=== PATIENT | male | born 1980 | race Caucasian/White ===

== ENCOUNTER 2023-11-14 13:58 | Emergency (ER) | payer OTHER, SELFPAY ==
--- NOTE | ~2023-11-14 | CT_ITS ---
EXAMINATION: CT ABDOMEN AND PELVIS WITH CONTRAST CLINICAL INFORMATION: 43-year-old male with epigastric pain, nausea and vomiting COMPARISON: None available. TECHNIQUE: Multidetector volumetric images were obtained from the superior aspect of the liver through the pubic symphysis following administration 80 mL of Omnipaque 350 intravenous contrast. Sagittal and coronal reformatted images were obtained on the technologist's workstation. Oral contrast: No This CT examination was performed using dose optimization techniques as appropriate, variously including the following: *Automated exposure control *Adjustment of mA and/or kV according to patient size (this includes techniques or standardized protocols for targeted exams where dose is matched to indication/reason for exam; i.e. extremities or head) *Use of iterative reconstruction technique DLP: 552 mGy-cm FINDINGS: LUNG BASES: The visualized lung bases are unremarkable. LIVER, GALLBLADDER, AND BILIARY TREE: The liver is normal in size, shape, and attenuation. No focal hepatic lesion or biliary ductal dilatation is present. The gallbladder is unremarkable with no evidence of radiopaque gallstones, gallbladder wall thickening, or obvious pericholecystic inflammatory changes. PANCREAS: Unremarkable. SPLEEN: Unremarkable. ADRENAL GLANDS: Unremarkable. KIDNEYS AND URETERS: There is punctate nonobstructing stone in the collecting system of left kidney BLADDER: Unremarkable. GASTROINTESTINAL TRACT: There is diffuse thickening of ascending colon loop without evidence of obstruction or perforation. Appendix is unremarkable. There is no inflammatory changes surrounding thick wall of the colon. There is a of colon is decompressed and unremarkable ABDOMINAL WALL: No significant hernia is appreciated. LYMPH NODES: There is small reactive appearing lymph nodes seen in the right side of mesentery VASCULAR: Unremarkable. PELVIC VISCERA: Unremarkable. OSSEOUS STRUCTURES: Unremarkable. CT/CT abdomen pelvis w IV con IMPRESSION: 1. Diffuse thickening of ascending colon loop with reactive appearing lymph nodes in the right side of the mesentery. Most likely colitis 2. Punctate nonobstructing stone in left kidney. Fleischner guidelines were followed.
--- NOTE | 2023-11-14 14:04 | ED.NAVMDI ---
HPI - Nausea/Vomiting/Diarrhea General Chief complaint: Abdominal Pain Stated complaint: VOMITING Time Seen by Provider: 11/14/23 14:25 Source: patient, EMS, RN notes reviewed and old records reviewed Mode of arrival: EMS History of Present Illness ED Provider: Jeannie Kaye PA-C HPI Narrative: 45-year-old male with past medical history of hypertension, psychosis, presenting to ED via EMS from [facility] for epigastric abdominal pain, nausea, and vomiting x 1 hour. Patient denies EtOH or drug use recently. Reports some diarrhea. Denies fever, chills, CP/SOB, urinary symptoms Related Data Previous Rx's ?Medication ?Instructions ?Recorded ondansetron HCl 4 mg tablet 4 mg PO Q8H PRN nausea and 11/14/23 vomiting #14 tabs Allergies Allergy/AdvReac Type Severity Reaction Status Date / Time amitriptyline Allergy Palpitation Verified 11/14/23 14:17 s venlafaxine [From Effexor] Allergy Palpitation Verified 11/14/23 14:17 s Review of Systems Review of Systems: Constitutional: No Fever, No Chills ENT/Mouth: No Ear Pain, No Nasal Congestion, No sore throat, No Rhinorrhea, No Swallowing Difficulty Cardiovascular: No Chest Pain, No SOB Respiratory: No Cough Gastrointestinal: + Nausea, + Vomiting, + Diarrhea, No Constipation, + Abdominal pain Genitourinary: No Dysuria, No Urinary Frequency, No Hematuria, No Urinary Incontinence/retention, No Flank Pain Musculoskeletal: No joint pain, No Myalgias, No Joint Swelling Skin: No Skin Lesions, No rash Neuro: No Weakness, No Numbness, No Paresthesia Yes all other systems are reviewed and are negative Constitutional: Constitutional: Reports as per [facility] Past Medical History Attestation statement: The following information was validated with the patient. Source: old records reviewed Social History Social History Alcohol intake: former Use of substances other than those prescribed or required for medical reasons: No Advance Directives: No Physical Exam Vital Signs: Vital Signs: Last Vital Signs Temp 98.8 F 11/14/23 18:55 Pulse 80 11/14/23 21:11 Resp 17 11/14/23 21:11 BP 155/101 H 11/14/23 21:11 Pulse Ox 99 11/14/23 21:11 O2 Del Method Room Air 11/14/23 21:11 BMI result Body Mass Index 33.0 Const: General: cooperative, healthy appearing and no acute distress Orientation/consciousness: patient oriented x3 Limitations: no limitations HEENT: Head: Yes normal to inspection and Yes atraumatic Ears: hearing grossly normal bilaterally General nose exam: Normal external nose present Face and sinus: Yes normal facial exam Eyes: General: appearance normal, both eyes and all related structures EOM: EOMs intact bilaterally Neck: Neck: Yes normal visual inspection and Yes no meningeal signs Resp: Effort & Inspection: normal respiratory effort and no respiratory distress Auscultation: clear to auscultation bilaterally Cardio: Rate: regular rate Heart sounds: S1 normal heart sound present and S2 normal heart sound present GI: Inspection: Yes normal to inspection Palpation (GI): Soft to palpation, Tenderness to palpation present (GI) in the epigastrum; with no rebound tenderness, no guarding and not rigid : General: Yes no CVA tenderness Back/Spine/Pelvis: Back: no CVA tenderness Skin: Rashes: no rashes Wounds: no wounds Neuro: General: patient oriented x3, tone normal and no meningeal signs Cranial nerves: Yes CN's II-XII intact bilaterally Gait exam (Neuro): Normal gait present Extrem: General: Yes normal to inspection Course Course Course Narrative: -WBC count 11.9. ALT mildly elevated. Labs otherwise reassuring. Ethanol negative. Tox screen positive for marijuana -UA with ketones, not infected -1630--ED care transferred to [place] pending UA, tox screen, and CT AP. Dispo per results Reevaluation(s) Reevaluation #1: UA without infection. Patient's CBC slight leukocytosis 11.9 no left shift this is likely reactive secondary to nausea and vomiting. Chemistry no acute findings needing intervention. Lipase 46. Urine toxicology positive for marijuana. Ethanol level negative. Initially when I took over for this patient he was having significant nausea and vomiting, IV Haldol was given as I do suspect this is cyclic vomiting. Patient woke up in reports he is feeling much better in terms of nausea and vomiting slight abdominal discomfort. For this reason abdominal CT was done, diffuse thickening of the ascending colon loop with reactive appearing lymph nodes in the right side of mesentery. Most likely colitis. Punctate nonobstructing stone in the left kidney unlikely that this is causing patient's pain. Plan at this time is discharge patient home with meds for nausea. Colitis is likely viral as patients have been present for only 24 hours, no fever, tachycardia. I do not suspect bacterial colitis. Patient tolerating p.o.. Well-appearing. Educated patient on diagnosis and treatment plan, answered all question, patient verbalizes understanding. At this time patient will be discharged home, advised to return with new or worsening symptoms. Educated on worrisome signs and symptoms and when to return. At this time I feel comfortable discharge home. Time: 21:55 Medications Administered Discontinued Medications Generic Name Dose Route Start Last Admin Trade Name Freq PRN Reason Stop Dose Admin Diphenhydramine HCl 50 mg 11/14/23 14:37 11/14/23 14:48 Diphenhydramine Hcl 50 Mg/Ml Vial IVPUSH 11/14/23 14:38 50 mg ONCE ONE Administration Haloperidol Lactate 2 mg 11/14/23 18:13 11/14/23 18:18 Haloperidol Lactate 5 Mg/Ml Vial IVPUSH 11/14/23 18:14 2 mg STAT STA Administration Hydromorphone HCl 2 mg 11/14/23 21:43 11/14/23 21:48 Hydromorphone Hcl 2 Mg Tablet PO 11/14/23 21:44 2 mg ONCE ONE Administration Sodium Chloride 1,000 mls @ 999 mls/hr 11/14/23 14:30 11/14/23 16:26 Ns IV 11/14/23 15:30 Infused .Q1H1M ANITA Infusion Iohexol 100 ml 11/14/23 15:18 11/14/23 15:18 Iohexol 350 Mg/Ml 100 Ml Infus..Btl IV 11/14/23 15:19 85 ml ONCE ONE Administration Ketorolac Tromethamine 15 mg 11/14/23 14:17 11/14/23 14:25 Ketorolac Tromethamine 15 Mg/Ml Vial IVPUSH 11/14/23 14:18 15 mg ONCE ONE Administration Ondansetron HCl 4 mg 11/14/23 14:17 11/14/23 14:25 Ondansetron Hcl 4 Mg/2 Ml Vial IVPUSH 11/14/23 14:18 4 mg ONCE ONE Administration Medical Decision Making Medical Decision Making MDM Narrative: 45-year-old male with past medical history of hypertension, psychosis, presenting to ED via EMS from [facility] for epigastric abdominal pain, nausea, and vomiting x 1 hour. On exam vital signs stable, NAD, nontoxic appearing, abdomen soft epigastric tenderness, no rebound or guarding. Concern for cyclical vomiting vs pancreatitis vs cholecystitis/cholelithiasis vs substance abuse vs EtOH abuse or ?withdrawal. No tongue fasciculations. Rule out metabolic abnormalities. Low suspicion for severe sepsis Plan: EKG, labs, UA, tox screen, CT AP, IVF, antiemetic, re-evaluate Please refer to course for remaining clinical decision making, interpretation of labs/imaging results, and discussions with consultants and/or family members. Differential Diagnosis Differential Diagnoses: The differential diagnosis associated with the presentation includes As above Admission/Observation Consideration of admission/observation: Escalation of care including admission/observation considered Lab Data [facility] Lab Attestation statement: I reviewed the patient's lab results. 11/14/23 14:22 11/14/23 14:22 Labs: Lab Results 11/14/23 11/14/23 Range/Units 14:22 15:42 WBC 11.9 H (4.8-10.8) X10*3/uL RBC 5.15 (4.60-5.80) X10*6/uL Hgb 16.3 (14.0-18.0) g/dl Hct 46.1 (42.0-52.0) % MCV 89.5 (80.0-98.0) fL MCH 31.7 (27.0-33.0) pg MCHC 35.4 (31.0-36.0) g/dl RDW 12.6 (11.0-16.0) % Plt Count 303 (160-400) X10*3/uL MPV 9.0 L (9.4-12.4) fL Immature Gran % (Auto) 0.6 H (0.0-0.4) % Neut % (Auto) 66.5 (45-73) % Lymph % (Auto) 22.0 (20-40) % [place] % (Auto) 8.7 (2-11) % Eos % (Auto) 1.8 (0-4) % Baso % (Auto) 0.4 (0-2) % Lymph # (Auto) 2.6 (1.2-4.9) X10*3/uL [place] # (Auto) 1.0 (0.1-1.2) X10*3/uL Eos # (Auto) 0.2 (0.0-0.4) X10*3/uL Baso # (Auto) 0.1 (0.0-0.2) X10*3/uL Abs Immat Gran (auto) 0.07 H (0.00-0.03) X10*3/uL Absolute Neuts (auto) 7.9 (2.0-8.3) x10*3/uL Absolute Nucleated RBC 0.000 (0.0-0.012) X10*3/uL Nucleated RBC % (auto) 0.0 (0.0-0.2) /100WBC Sodium 138 (135-145) mmol/L Potassium 4.2 (3.3-5.1) mmol/L Chloride 107 (96-108) mmol/L Carbon Dioxide 21 L (22-29) mmol/L Anion Gap 14 (12-20) BUN 14 (9-16) mg/dL Creatinine 0.87 (0.5-1.4) mg/dL Estim Creat Clear Calc 132.4 Estimated GFR > 60 Random Glucose 130 H (60-115) mg/dL Calcium 9.2 (8.4-10.2) mg/dL Magnesium 2.2 (1.6-2.6) mg/dL Total Bilirubin 0.6 (0.0-1.0) mg/dL Direct Bilirubin 0.1 (0.0-0.5) mg/dL AST 37 (5-37) U/L ALT 55 H (0-40) U/L Alkaline Phosphatase 67 (39-117) U/L Total Protein 7.7 (6.5-8.0) g/dL Albumin 4.7 (3.5-5.0) g/dL Lipase 46 (8-78) U/L Urine Color Yellow Urine Appearance Turbid Urine pH 8.5 (5.0-9.0) Ur Specific [place] 1.025 (1.005-1.025) Urine Protein Negative (Neg-Trace) mg/dL Urine Glucose (UA) Negative (Negative) mg/dL Urine Ketones 15 (Negative) mg/dL Urine Blood Negative (Negative) Urine Nitrite Negative (Negative) Ur Leukocyte Esterase Negative (Negative) Urine Opiates Screen Not Detected (Not Detect) Ur Buprenorphine Scrn Not Detected (Not Detect) ng/mL Ur Oxycodone Screen Not Detected (Not Detect) ng/mL Urine Methadone Screen Not Detected (Not Detect) ng/mL Urine Fentanyl Screen Not Detected (Not Detect) Ur Barbiturates Screen Not Detected (Not Detect) Ur Phencyclidine Scrn Not Detected (Not Detect) Ur Amphetamines Screen Not Detected (Not Detect) U Benzodiazepines Scrn Not Detected (Not Detect) Urine Cocaine Screen Not Detected (Not Detect) U Marijuana (THC) Screen POSITIVE H (Not Detect) Ethyl Alcohol < 10 mg/dL Independent Interpretation I performed an independent interpretation of an: EKG and CT Scan Radiology Impression Discussion of test interpretation with radiology: I have reviewed the radiologist's reading. Independent Historian Clinical information obtained from an independent historian. History obtained from or confirmed by: EMS External Record Review External record reviewed: Inpatient record, Office record, Outpatient record, Prior outpatient labs, Prior outpatient radiology, Primary care record and Outside ED record Tests considered The following testing was considered but not selected: As above Prescription Management I considered prescription management with: Pain Medication Chronic Conditions Patient?s care impacted by: Other Social Determinants Patient?s care significantly limited by Social Determinants of Health including: Inadequate housing, Low income, Alcoholism and drug addiction in family and Problems related to primary support group Critical Care Time Critical Care Time Critical Care Time: Yes Total Critical Care Time: 35 Attestation: I attest to this time spent taking care of the patient, obtaining history, physical, reviewing labs, imaging, speaking to my attending, specialist or hospitalist. Discharge Plan Discharge Clinical Impression: Abdominal pain, Nausea & vomiting, Colitis, Kidney calculi Patient Disposition: Home, Self-Care Instructions: Acute Nausea and Vomiting (ED), Abdominal Pain (ED) Additional Instructions: Take your medications as prescribed. If you were prescribed antibiotics today, it is important that you take your medication to their entirety, do not skip any doses, do not finish them early. Follow-up with your primary care provider this week. Return to the emergency department with new or worsening symptoms. Such as fevers, chills, chest pain, shortness of breath, nausea, vomiting, dizziness, headache, vision changes, lethargy In case of emergency call 911 CT/CT abdomen pelvis w IV con IMPRESSION: 1. Diffuse thickening of ascending colon loop with reactive appearing lymph nodes in the right side of the mesentery. Most likely colitis 2. Punctate nonobstructing stone in left kidney. Fleischner guidelines were followed. Prescriptions: New ondansetron HCl 4 mg tablet 4 mg PO Q8H PRN (Reason: nausea and vomiting) Qty: 14 0RF Referrals: [facility] [Provider Group] - 2 days Physician,Unknown J [Primary Care Provider] - 2 days Stand Alone Forms: Work/School Release Print Language: Portuguese
[2023-11-14 14:13] VITALS: BP 153/85; BP 156/92; PULSE 64; PULSE 70; RESP 12; TEMP 36.6; O2SAT 98; BMI 33.0
--- NOTE | 2023-11-14 14:17 | ECG_ITS ---
Test Reason : EPIGASTRIC PAIN Blood Pressure : / mmHG Vent. Rate : 065 BPM Atrial Rate : 065 BPM P-R Int : 156 ms QRS Dur : 098 ms QT Int : 434 ms P-R-T Axes : 054 009 060 degrees QTc Int : 451 ms Normal sinus rhythm Possible Anterior infarct , age undetermined Abnormal ECG No previous ECGs available Referred By: Jeannie Kaye Electronically Signed By:NICO OCONNOR
[2023-11-14] MEDS: ondansetron HCL 4 MG/2 ML VIAL IVPUSH (14:25)
[2023-11-14] MEDS: 0.9 % Sodium Chloride 1,000 ML 999 ML IV (14:25)
[2023-11-14] MEDS: Ketorolac Tromethamine 15 MG/ML VIAL IVPUSH (14:25)
[2023-11-14 14:26] LABS: MANUAL DIFF FLAG NO
[2023-11-14 14:30] LABS: Basophils Absolute Auto 0.1 X10*3/uL (0.0-0.2); Basophils Percent Auto 0.4 % (0-2); Eosinophils Absolute Auto 0.2 X10*3/uL (0.0-0.4); Eosinophils Percent Auto 1.8 % (0-4); Hematocrit 46.1 % (42.0-52.0); Hemoglobin 16.3 g/dl (14.0-18.0); Imm Gran Abs Auto 0.07 X10*3/uL (0.00-0.03); Imm Gran Pct Auto 0.6 % (0.0-0.4); Lymphocytes Absolute Auto 2.6 X10*3/uL (1.2-4.9); Mean Corpuscular HGB Conc 35.4 g/dl (31.0-36.0); Mean Corpuscular Hemoglobin 31.7 pg (27.0-33.0); Mean Corpuscular Volume 89.5 fL (80.0-98.0); Monocytes Percent Auto 8.7 % (2-11); Neutrophils Absolute Auto 7.9 x10*3/uL (2.0-8.3); Neutrophils Percent Auto 66.5 % (45-73); Platelet Count 303 X10*3/uL (160-400); Red Blood Count 5.15 X10*6/uL (4.60-5.80); Red Cell Distribution Width 12.6 % (11.0-16.0); White Blood Count 11.9 X10*3/uL (4.8-10.8)
[2023-11-14] MEDS: diphenhydrAMINE HCL 50 MG/ML VIAL IVPUSH (14:48)
[2023-11-14 14:50] LABS: Alanine Aminotransferase 55 U/L (0-40); Albumin Level 4.7 g/dL (3.5-5.0); Alkaline Phosphatase 67 U/L (39-117); Anion Gap 14 (12-20); Aspartate Amino Transferase 37 U/L (5-37); Bilirubin Direct 0.1 mg/dL (0.0-0.5); Bilirubin Total 0.6 mg/dL (0.0-1.0); Blood Urea Nitrogen 14 mg/dL (9-16); Calcium 9.2 mg/dL (8.4-10.2); Carbon Dioxide 21 mmol/L (22-29); Chloride 107 mmol/L (96-108); Creatinine Clr Calc Pharmacy 132.4; Estimated Glomerular Filt Rate > 60; Ethanol < 10 mg/dL; Glucose Random 130 mg/dL (60-115); Lipase 46 U/L (8-78); Magnesium 2.2 mg/dL (1.6-2.6); Potassium 4.2 mmol/L (3.3-5.1); Sodium 138 mmol/L (135-145); Total Protein 7.7 g/dL (6.5-8.0)
[2023-11-14] MEDS: iohexoL 350 MG/ML 100 ML INFUS..BTL IV (15:18)
[2023-11-14 15:47] VITALS: BP 140/88; PULSE 68; RESP 17; TEMP 36.7; O2SAT 97
[2023-11-14 15:54] LABS: Appearance Urine Turbid; Color Urine Yellow; Glucose Urine UA Negative (Negative); Leukocyte Esterase Urine Negative (Negative); Nitrite Urine Negative (Negative); PH 8.5 (5.0-9.0); Specific Gravity - Urine 1.025 (1.005-1.025); Urine Blood Negative (Negative); Urine Ketones 15 mg/dL (Negative); Urine Protein Negative (Neg-Trace)
[2023-11-14 16:03] LABS: Amphetamine Screen Urine Not Detected (Not Detect); Barbiturates, Urine Not Detected (Not Detect); Benzodiazepines Screen Urine Not Detected (Not Detect); Buprenorphine Scr Not Detected (Not Detect); Cannabinoid Screen Urine POSITIVE (Not Detect); Cocaine Screen Urine Not Detected (Not Detect); Fentanyl, urine Not Detected (Not Detect); Methadone Screen, Urine Not Detected (Not Detect); Opiate Screen Urine Not Detected (Not Detect); Oxycodone Screen Urine Not Detected (Not Detect); Phencyclidine Screen Urine Not Detected (Not Detect)
--- NOTE | 2023-11-14 18:15 | PC.NURSE ---
pt reports burning epigastric pain, nasuea and vomiting. PA notified. haldol ordered.
[2023-11-14] MEDS: Haloperidol Lactate 5 MG/ML VIAL 2 MG IVPUSH (18:18)
[2023-11-14 18:19] VITALS: BP 146/97; PULSE 87; RESP 20; TEMP 37.1; O2SAT 98
[2023-11-14 18:55] VITALS: BP 146/97; PULSE 60; RESP 19; TEMP 37.1; O2SAT 98
[2023-11-14 21:11] VITALS: BP 155/101; PULSE 80; RESP 17; O2SAT 99
--- NOTE | 2023-11-14 21:18 | PC.NURSE ---
Patient reporting increased pain the abdomen, made aware.
[2023-11-14] MEDS: HYDROmorphone HCl 2 MG TABLET PO (21:48)
[2023-11-14] MEDS: Ondansetron ODT 4 MG TAB.RAPDIS TRANSLINGU (22:37)
[2023-11-14 22:42] VITALS: BP 149/100; PULSE 67; RESP 15; TEMP 36.8; O2SAT 98
--- NOTE | 2023-11-14 22:43 | PC.NURSE ---
warm handover given to Rebecca PERES at [facility].
== END 2023-11-14 22:49 | disposition home or self-care (01) ==
PROVIDERS: Physician Assistant; Emergency Provider Emergency Medicine
DX: K52.9 Noninfective gastroenteritis and colitis, unspecified (principal); R11.2 Nausea with vomiting, unspecified; N20.0 Calculus of kidney; R94.31 Abnormal electrocardiogram [ECG] [EKG]; R10.13 Epigastric pain; Z51.81 Encounter for therapeutic drug level monitoring; Z79.899 Other long term (current) drug therapy
CPT/HCPCS: 36415; 74177; 80048; 80076; 80307; 81003; 83690; 83735; 85025; 93005; 96361; 96374; 96375; 99285; J1200; J1630; J1885; J2405; Q9967